=== PATIENT | female | born 1955 | race Caucasian/White ===

== ENCOUNTER 2017-10-07 18:51 | Emergency (ER) | payer MEDICAID, OTHER, SELFPAY ==
[~2017-10-07] VITALS: Ht 172.7 cm; Wt 48.8 kg
[2017-10-07 19:35] LABS: BASOPHILS # (AUTO) 0.04 x10^3/uL (0-0.1); BASOPHILS % (AUTO) 0 % (0-1); EOSINOPHILS # (AUTO) 0.05 x10^3/uL (0-0.4); EOSINOPHILS % (AUTO) 1 % (1-7); LYMPHOCYTES % (AUTO) 17 % (22-44); MD NO; MEAN CORPUSCULAR HEMOGLOBIN 30.5 pg (27.0-34.8); MEAN CORPUSCULAR HGB CONC 32.9 g/dL (32.4-35.8); MEAN CORPUSCULAR VOLUME 92.9 fL (80-100); MEAN PLATELET VOLUME 8.3 fL (7.4-10.4); MONOCYTES # (AUTO) 0.72 x10^3/uL (0.2-0.8); MONOCYTES % (AUTO) 8 % (2-9); NEUTROPHILS # (AUTO) 7.03 x10^3/uL (1.8-6.8); NEUTROPHILS % (AUTO) 75 % (42-75); PLATELET COUNT 224 x10^3/uL (130-400); RED BLOOD COUNT 4.72 x10^6/uL (3.82-5.3)
[2017-10-07 19:48] LABS: ALANINE AMINOTRANSFERASE 24 U/L (12-78); ALBUMIN 4.7 g/dL (3.4-5.0); ANION GAP 8 mmol/L (5-15); CALCIUM 10.2 mg/dL (8.5-10.1); CHLORIDE 96 mmol/L (98-107)
[2017-10-07 19:51] LABS: ALKALINE PHOSPHATASE 83 U/L (45-117); BILIRUBIN,TOTAL 0.5 mg/dL (0.2-1.0); CREATININE 1.27 mg/dL (0.55-1.02); TOTAL PROTEIN 8.7 g/dL (6.4-8.2)
[2017-10-07] MEDS ORDERED: POTASSIUM CHLORIDE 10% 20 MEQ/15 ML UDC PO ONE (20:00)
[2017-10-07] MEDS ORDERED: POTASSIUM CHLORIDE 20 MEQ TAB.ER.PRT ONE (20:07)
[2017-10-07 20:11] LABS: TROPONIN I < 0.015 ng/mL (0.000-0.045)
[2017-10-07] MEDS ORDERED: POTASSIUM CHLORIDE 20 MEQ in SODIUM CHLORIDE 0.9% 250 ML IV ONE (21:00)
[2017-10-07 22:35] VITALS: BP 150/94
== END 2017-10-07 23:26 | disposition home or self-care (01) ==
LOC: ED 23:00
DX: E87.6 Hypokalemia (principal); I10 Essential (primary) hypertension
CPT/HCPCS: 36415; 80053; 84484; 85025; 93005; 96365; 99285; J3480; J7050

== ENCOUNTER → 2017-10-29 | Outpatient (CLI) | payer OTHER ==
[~2017-10-29] MED LIST: OMNIPAQUE 350 MG/ML, 100ML BOTTLE ONE
== END | disposition home or self-care (01) ==
LOC: RAD 12:06
PROVIDERS: ATTEND Family Medicine
DX: K80.20 Calculus of gallbladder without cholecystitis without obstruction (principal); J44.9 Chronic obstructive pulmonary disease, unspecified; C32.1 Malignant neoplasm of supraglottis; E27.1 Primary adrenocortical insufficiency; C76.0 Malignant neoplasm of head, face and neck; C44.309 Unspecified malignant neoplasm of skin of other parts of face; J34.89 Other specified disorders of nose and nasal sinuses
CPT/HCPCS: 70491; 71260; 74177; Q9967

== ENCOUNTER → 2017-12-03 | Outpatient (CLI) | payer OTHER | END | disposition home or self-care (01) | LOC: ROC 08:40 | PROVIDERS: ATTEND Radiology Radiation Oncology | DX: C01 Malignant neoplasm of base of tongue (principal); J44.9 Chronic obstructive pulmonary disease, unspecified; I10 Essential (primary) hypertension | CPT/HCPCS: 99214; G0463 ==

== ENCOUNTER → 2017-12-09 | Outpatient (CLI) | payer OTHER | END | disposition home or self-care (01) | LOC: PETCFH 12:12 | PROVIDERS: ATTEND Internal Medicine Hematology & Oncology | DX: C77.9 Secondary and unspecified malignant neoplasm of lymph node, unspecified (principal); C01 Malignant neoplasm of base of tongue; L98.8 Other specified disorders of the skin and subcutaneous tissue | CPT/HCPCS: 78815; A9552 ==

== ENCOUNTER 2018-01-17 06:00 | Day surgery (SDC) | payer OTHER ==
[~2018-01-17] VITALS: Ht 174 cm; Wt 46.5 kg
[2018-01-17] MEDS ORDERED: LACTATED RINGERS 1,000 ML IV SCH (06:22)
[2018-01-17] MEDS ORDERED: LISI40TA PO (06:23)
[2018-01-17] MEDS ORDERED: HYDR-882 PO (06:23)
[2018-01-17] MEDS ORDERED: BUPIVACAINE/PF 0.5% ONE (06:26)
[2018-01-17] MEDS ORDERED: EPINEPHRINE 1 MG/ML, 1ML ONE (06:26)
[2018-01-17] MEDS ORDERED: MIDAZOLAM 1 MG/ML, 2ML ONE (06:26)
[2018-01-17] MEDS ORDERED: LIDOCAINE-MPF 1%, 5ML ONE (06:26)
[2018-01-17] MEDS ORDERED: FENTANYL PF 250 MCG/5ML ONE (06:27)
[2018-01-17] MEDS ORDERED: KETAMINE 10 MG/ML, 20ML ONE (06:28)
[2018-01-17 06:39] VITALS: BP 170/89
[2018-01-17 06:54] LABS: ALBUMIN 3.9 g/dL (3.4-5.0); ANION GAP 8 mmol/L (5-15); CALCIUM 9.3 mg/dL (8.5-10.1); CHLORIDE 98 mmol/L (98-107)
[2018-01-17 06:58] LABS: ALANINE AMINOTRANSFERASE 32 U/L (12-78); ALKALINE PHOSPHATASE 101 U/L (45-117); BILIRUBIN,TOTAL 0.5 mg/dL (0.2-1.0); CREATININE 0.95 mg/dL (0.55-1.02); TOTAL PROTEIN 7.7 g/dL (6.4-8.2)
[2018-01-17] MEDS ORDERED: DEXAMETHASONE 4 MG/ML, 5ML ONE (07:08)
[2018-01-17] MEDS ORDERED: PROPOFOL 10 MG/ML, 20ML ONE (07:08)
[2018-01-17] MEDS ORDERED: ONDANSETRON 2MG/ML, 2ML ONE (07:08)
[2018-01-17] MEDS ORDERED: CEFAZOLIN 1,000 MG ONE (07:08)
[2018-01-17] MEDS ORDERED: BUPIVACAINE/PF-EPI 0.5% 1:200K IM ONE (07:33)
[2018-01-17] MEDS ORDERED: PROMETHAZINE 12.5 MG SUPP PR PRN (08:00)
[2018-01-17] MEDS ORDERED: hydrALAzine 20 MG/ML, 1ML IV PRN ×2 (08:00→09:40)
[2018-01-17] MEDS ORDERED: ALBUTEROL SULFATE 2.5 MG/3 ML NPPB PRN (08:00)
[2018-01-17] MEDS ORDERED: FENTANYL PF 100 MCG/2ML IV PRN (08:00)
[2018-01-17] MEDS ORDERED: OXYcodone 5 MG/5 ML ORAL.SOL UDC PEG PRN (08:00)
[2018-01-17] MEDS ORDERED: morphine SULFATE 10 MG/ML, 1ML IV PRN (08:00)
[2018-01-17] MEDS ORDERED: LABETALOL 5MG/ML, 20ML IV PRN (08:00)
[2018-01-17] MEDS ORDERED: ACETAMINOPHEN 325 MG TABLET PEG PRN (08:00)
[2018-01-17] MEDS ORDERED: hydrALAzine 20 MG/ML, 1ML ONE (09:29)
== END 2018-01-17 10:10 ==
LOC: OUT 06:00
PROVIDERS: ATTEND Surgery
DX: C01 Malignant neoplasm of base of tongue (principal); I10 Essential (primary) hypertension; Z87.891 Personal history of nicotine dependence; Z91.040 Latex allergy status
CPT/HCPCS: 36415; 43653; 80053; J0171; J0360; J0690; J1100; J2250; J2405; J2704; J3010; J3490; J7120; B4087

== ENCOUNTER → 2018-02-25 | Outpatient (CLI) | payer OTHER ==
[~2018-02-25] MED LIST changes: +HYDR-882 PO; +LISI40TA PO; -OMNIPAQUE 350 MG/ML, 100ML BOTTLE ONE
== END | disposition home or self-care (01) ==
LOC: ROC 12:32
PROVIDERS: ATTEND Radiology Radiation Oncology
DX: Z08 Encounter for follow-up examination after completed treatment for malignant neoplasm (principal); C10.8 Malignant neoplasm of overlapping sites of oropharynx; R53.83 Other fatigue
CPT/HCPCS: 99212; G0463

== ENCOUNTER → 2018-05-12 | Outpatient (CLI) | payer OTHER | END | disposition home or self-care (01) | LOC: ROC 07:13 | PROVIDERS: ATTEND Radiology Radiation Oncology | DX: C10.8 Malignant neoplasm of overlapping sites of oropharynx (principal) | CPT/HCPCS: 99212; G0463 ==

== ENCOUNTER 2019-04-17 08:25 | Outpatient (CLI) | payer OTHER ==
[~2019-04-17 08:25] MED LIST changes: +HYDR-3653 PO; -HYDR-882 PO
[2019-04-17] MEDS ORDERED: OMNIPAQUE 350 MG/ML, 75ML BOTTLE ONE (14:54)
== END 2019-04-17 23:59 | disposition home or self-care (01) ==
LOC: CFH 08:25
PROVIDERS: ATTEND Internal Medicine Hematology & Oncology
DX: C01 Malignant neoplasm of base of tongue (principal)
CPT/HCPCS: 70491; 82565; Q9967

== ENCOUNTER → 2020-05-22 | Outpatient (CLI) | payer OTHER ==
[~2020-05-22] MED LIST changes: +OMNIPAQUE 350 MG/ML, 100ML BOTTLE ONE
== END | disposition home or self-care (01) ==
LOC: CFH 05-13 09:07
PROVIDERS: ATTEND Internal Medicine Hematology & Oncology
DX: C01 Malignant neoplasm of base of tongue (principal); J98.11 Atelectasis
CPT/HCPCS: 70491; 71046; Q9967